=== PATIENT | male | born 1960 | race Caucasian/White ===

== ENCOUNTER 2023-02-11 15:28 | Outpatient (CLI) | payer MEDICARE, MEDICAID | END 2023-02-11 23:59 | disposition critical access hospital (66) | LOC: EMS 15:28 | DX: R07.89 Other chest pain (principal); M79.604 Pain in right leg | CPT/HCPCS: A0425; A0429 ==

== ENCOUNTER 2023-02-11 15:49 | Emergency (ER) | payer MEDICARE, MEDICAID ==
[2023-02-11 16:23] LABS: BASOPHILS # (AUTO) 0.1 10^3/uL (0.0-0.1); BASOPHILS % (AUTO) 0.9 %; EOSINOPHILS # (AUTO) 0.3 10^3/uL (0.0-0.7); EOSINOPHILS % (AUTO) 2.9 %; HGB - HEMOGLOBIN 16.1 g/dL (14.0-18.0); LYMPHOCYTES # (AUTO) 1.8 10^3/uL (1.5-3.5); LYMPHOCYTES % (AUTO) 15.6 %; MEAN CORPUSCULAR HEMOGLOBIN 31.6 pg (27.0-31.0); MEAN CORPUSCULAR HGB CONC 34.3 g/dL (32.0-36.0); MEAN CORPUSCULAR VOLUME 92.2 fL (80.0-94.0); MEAN PLATELET VOLUME 9.9 fL (7.4-11.4); MONOCYTES # (AUTO) 0.6 10^3/uL (0.0-1.0); MONOCYTES % (AUTO) 5.3 %; NEUTROPHILS # (AUTO) 8.9 10^3/uL (1.5-6.6); PLT - PLATELET COUNT 190 10^3/uL (130-450); RED CELL DISTRIBUTION WIDTH 12.8 % (12.0-15.0); WHITE BLOOD COUNT 11.8 x10^3/uL (4.8-10.8)
[2023-02-11 16:24] VITALS: BP 181/81
--- NOTE | 2023-02-11 16:27 | ED Physician Documentation ---
PD HPI CHEST PAIN - Stated complaint Stated Complaint: CP - Chief complaint Chief Complaint: Cardiac - History obtained from History obtained from: Patient - Additional information Additional information: Patient is a 62-year-old male presenting for evaluation of chest pain that started approximately 30 minutes prior to arrival. Patient said he was walking outside to smoke a cigarette when he felt it in the left side of his chest that felt like a pressure. It lasted 10 minutes and has resolved. He reports having other similar episodes in the past without clear etiology. He has a history of hypertension is on amlodipine.Denies history of PE or DVT. Does not use alcohol or drugs.Patient is currently staying at the [facility]. Review of Systems Constitutional: denies: Fever Cardiac: reports: Chest pain / pressure Respiratory: denies: Dyspnea GI: denies: Abdominal Pain, Vomiting : denies: Dysuria Musculoskeletal: denies: Back pain, Extremity swelling Neurologic: denies: Headache PD PAST MEDICAL HISTORY - Present Medications Home Medications: Ambulatory Orders Medication Instructions Recorded Confirmed Buprenorphine HCl/Naloxone HCl 1 each SL DAILY 02/11/23 02/11/23 [Buprenorphine-Nalox 8-2Mg Film] Lisinopril [Zestril] 20 mg PO DAILY 02/11/23 02/11/23 amLODIPine [Norvasc] 10 mg PO DAILY 02/11/23 02/11/23 - Allergies Allergies/Adverse Reactions: Allergies Allergy/AdvReac Type Severity Reaction Status Date / Time amitriptyline Allergy Unknown Verified 02/11/23 16:33 haloperidol [From Haldol] Allergy Unknown Verified 02/11/23 16:33 quetiapine [From Seroquel] Allergy Unknown Verified 02/11/23 16:33 PD ED PE NORMAL - General General: Alert and oriented X 3, No acute distress, Well developed/nourished - HEENT HEENT: Atraumatic, Moist mucous membranes, Pharynx benign - Neck Neck: Supple, no meningeal sign - Cardiac Cardiac: RRR, No murmur - Respiratory Respiratory: No respiratory distress, Clear bilaterally - Abdomen Abdomen: Soft, Non tender, Non distended - Derm Derm: Warm and dry - Extremities Extremities: No edema, No calf tenderness / cord - Neuro Neuro: Normal speech Results - Vitals Vitals: Vital Signs - 24 hr 02/11/23 02/11/23 16:07 16:11 Temperature 36.8 C 37.0 C Heart Rate 97 97 Respiratory 20 20 Rate Blood Pressure 181/98 H 181/81 H O2 Saturation 97 97 Oxygen O2 Source Room air - EKG (time done) 1555 EKG releavant findings:: EKG personally interpreted by author of this note. Relevant findings are: Rate 93, normal sinus rhythm, isolated PVC, no STEMI, No prior available for comparison Rate: Rate (enter#) (93) Rhythm: NSR Intervals: No: Prolonged QT Ischemia: No: ST elevation c/w ischemia Compare to prior EKG: Old EKG unavailable - Labs Labs: Laboratory Tests 02/11/23 02/11/23 02/11/23 16:16 16:16 16:16 WBC 11.8 H RBC 5.10 Hgb 16.1 Hct 47.0 MCV 92.2 MCH 31.6 H MCHC 34.3 RDW 12.8 Plt Count 190 MPV 9.9 Neut # (Auto) 8.9 H Lymph # (Auto) 1.8 [place] # (Auto) 0.6 Eos # (Auto) 0.3 Baso # (Auto) 0.1 Absolute Nucleated RBC 0.00 Nucleated RBC % 0.0 Sodium 139 Potassium 3.7 Chloride 104 Carbon Dioxide 24 Anion Gap 11.0 BUN 18 Creatinine 0.9 Estimated GFR (MDRD) 86 L Glucose 147 H Calcium 9.5 Total Bilirubin 0.6 AST 22 ALT 23 Alkaline Phosphatase 93 Troponin I High Sens 5.1 Total Protein 7.4 Albumin 4.2 Globulin 3.2 Albumin/Globulin Ratio 1.3 02/11/23 17:16 WBC RBC Hgb Hct MCV MCH MCHC RDW Plt Count MPV Neut # (Auto) Lymph # (Auto) [place] # (Auto) Eos # (Auto) Baso # (Auto) Absolute Nucleated RBC Nucleated RBC % Sodium Potassium Chloride Carbon Dioxide Anion Gap BUN Creatinine Estimated GFR (MDRD) Glucose Calcium Total Bilirubin AST ALT Alkaline Phosphatase Troponin I High Sens 5.7 Total Protein Albumin Globulin Albumin/Globulin Ratio PD Medical Decision Making - ED course Complexity details: reviewed results, re-evaluated patient, d/w patient ED course: 1700 - Patient is resting comfortably. Reviewed his initial labs and chest x- ray. Discussed plan for repeat troponin in 2 hours. Patient has not had any further episodes of chest pain. Patient presenting for evaluation of 10-minute episode of left-sided chest pain and that occurred just prior to arrival. His EKG is reviewed and without ischemic changes.Blood pressure is slightly elevated but otherwise vital signs are stable. He is symptom-free here. His CBC, chemistry and high-sensitivity troponin are reviewed and without significant findings. Plan for 2-hour troponin. Unfortunately the repeat troponin was drawn 1 hour early. It is however still negative. I did order for a third troponin to be drawn at the 2- hour rbuna as we had previously discussed but patient was eager for discharge Wanting to catch the bus and eloped prior to Third troponin.Patient was not intoxicated. He was ambulating with a steady gait and with clear speech. Departure - Departure Disposition: ED [facility] Clinical Impression: Chest pain Discharge Date/Time: 02/11/23 18:31
--- NOTE | 2023-02-11 16:36 | XRAY Report ---
PROCEDURE: Chest 1 View X-Ray INDICATIONS: Chest pain TECHNIQUE: One view of the chest was acquired. COMPARISON: None. FINDINGS: Surgical changes and devices: None. Lungs and pleura: No pleural effusions or pneumothorax. Lungs are clear. Mediastinum: Mediastinal contours appear normal. Heart size is normal. Bones and chest wall: No suspicious bony lesions. Overlying soft tissues appear unremarkable. IMPRESSION: No acute cardiopulmonary process. Reviewed by: Charo Miller MD, PhD on 02/11/2023 4:35 PM PDT Approved by: Charo Miller MD, PhD on 02/11/2023 4:35 PM PDT Station ID: [id number]
[2023-02-11 16:40] LABS: ALBUMIN 4.2 g/dL (3.2-5.5); ALBUMIN/GLOBULIN RATIO 1.3 (1.0-2.2); BILIRUBIN,TOTAL 0.6 mg/dL (0.2-1.0); CALCIUM 9.5 mg/dL (8.5-10.3); CREATININE 0.9 mg/dL (0.6-1.2); POTASSIUM 3.7 mmol/L (3.5-5.0); TOTAL PROTEIN 7.4 g/dL (6.7-8.2)
[2023-02-11] MEDS ORDERED: ACETAMINOPHEN 325 MG TABLET PO STA (17:39)
== END 2023-02-11 18:31 | disposition left against medical advice (07) ==
LOC: ED 15:49
DX: R07.9 Chest pain, unspecified (principal); Z53.29 Procedure and treatment not carried out because of patient's decision for other reasons
CPT/HCPCS: 36415; 71045; 80053; 84484; 85025; 93005; 99283; 99284; A9270

== ENCOUNTER 2023-02-16 01:09 | Outpatient (CLI) | payer MEDICARE, MEDICAID | END 2023-02-16 01:10 | disposition critical access hospital (66) | LOC: EMS 01:09 | DX: R09.89 Other specified symptoms and signs involving the circulatory and respiratory systems (principal); I10 Essential (primary) hypertension | CPT/HCPCS: A0425; A0429 ==

== ENCOUNTER 2023-02-16 01:28 | Emergency (ER) | payer MEDICARE, MEDICAID ==
[2023-02-16] MEDS ORDERED: ACETAMINOPHEN 325 MG TABLET PO STA (01:49)
[2023-02-16 02:08] LABS: BASOPHILS # (AUTO) 0.1 10^3/uL (0.0-0.1); BASOPHILS % (AUTO) 1.3 %; EOSINOPHILS # (AUTO) 0.2 10^3/uL (0.0-0.7); EOSINOPHILS % (AUTO) 3.1 %; HCT - HEMATOCRIT 43.8 % (42.0-52.0); HGB - HEMOGLOBIN 14.9 g/dL (14.0-18.0); LYMPHOCYTES # (AUTO) 1.2 10^3/uL (1.5-3.5); LYMPHOCYTES % (AUTO) 18.8 %; MEAN CORPUSCULAR HEMOGLOBIN 31.6 pg (27.0-31.0); MEAN PLATELET VOLUME 10.2 fL (7.4-11.4); MONOCYTES # (AUTO) 0.4 10^3/uL (0.0-1.0); MONOCYTES % (AUTO) 6.1 %; NEUTROPHILS # (AUTO) 4.5 10^3/uL (1.5-6.6); NEUTROPHILS % (AUTO) 70.5 %; PLT - PLATELET COUNT 158 10^3/uL (130-450); RED BLOOD COUNT 4.71 10^6/uL (4.70-6.10); RED CELL DISTRIBUTION WIDTH 12.7 % (12.0-15.0); WHITE BLOOD COUNT 6.4 x10^3/uL (4.8-10.8)
[2023-02-16 02:20] LABS: ALBUMIN/GLOBULIN RATIO 1.2 (1.0-2.2); BILIRUBIN,TOTAL 0.6 mg/dL (0.2-1.0); CALCIUM 8.7 mg/dL (8.5-10.3); CREATININE 0.8 mg/dL (0.6-1.2); POTASSIUM 3.2 mmol/L (3.5-5.0); TOTAL PROTEIN 7.3 g/dL (6.7-8.2)
[2023-02-16] MEDS ORDERED: POTASSIUM CHLORIDE 20 MEQ TABLET PO STA (02:27)
[2023-02-16] MEDS ORDERED: SODIUM CHLORIDE 0.9% 1,000 ML IV STA (02:40)
--- NOTE | 2023-02-16 02:44 | ED Physician Documentation ---
History of Present Illness - Stated complaint Stated Complaint: HIGH BP - Chief complaint Chief Complaint: Cardiac - History obtained from History obtained from: Patient - Additonal information Additional information: Patient is a 62-year-old male with a history of hypertension presenting for evaluation feeling his heart pounding in his head that He noticed when he woke up from his sleep and was walking to the bathroom this evening. Patient is currently staying at the [facility]. He asked an employee there to check his blood pressure but they were unable to do so so they called EMS.EMS noted that his initial blood pressure was slightly elevated Patient woke up, while walking to bath room, he could feel his heartbeat pounding in head and chest. Asked employees of [employer] to take Blood pressure, but they are unable to. EMS was called. Initial blood pressure they obtained was 193/106 but that quickly improved in route.Patient denies having a severe headache. He reports a dull throbbing at the back of his head. Denies head injury. Does not take a blood thinner. Denies chest pain, shortness of breath.No vomiting or diarrhea. Review of Systems Constitutional: denies: Fever Cardiac: denies: Chest pain / pressure Respiratory: denies: Dyspnea GI: denies: Abdominal Pain : denies: Dysuria Musculoskeletal: denies: Extremity swelling Neurologic: denies: Head injury PD PAST MEDICAL HISTORY - Past Medical History Cardiovascular: Hypertension Psych: Depression, Anxiety - Past Surgical History Past Surgical History: Yes Ortho: Other - Present Medications Home Medications: Ambulatory Orders Medication Instructions Recorded Confirmed Buprenorphine HCl/Naloxone HCl 1 each SL DAILY 02/11/23 02/11/23 [Buprenorphine-Nalox 8-2Mg Film] Lisinopril [Zestril] 20 mg PO DAILY 02/11/23 02/11/23 amLODIPine [Norvasc] 10 mg PO DAILY 02/11/23 02/11/23 - Allergies Allergies/Adverse Reactions: Allergies Allergy/AdvReac Type Severity Reaction Status Date / Time amitriptyline Allergy Unknown Verified 02/11/23 16:33 haloperidol [From Haldol] Allergy Unknown Verified 02/11/23 16:33 quetiapine [From Seroquel] Allergy Unknown Verified 02/11/23 16:33 - Social History Does the pt smoke?: Yes Smoking Status: Current every day smoker PD ED PE NORMAL - General General: Alert and oriented X 3, No acute distress, Well developed/nourished - HEENT HEENT: Atraumatic - Neck Neck: Supple, no meningeal sign - Cardiac Cardiac: RRR, No murmur - Respiratory Respiratory: No respiratory distress, Clear bilaterally - Abdomen Abdomen: Soft, Non tender, Non distended - Derm Derm: Warm and dry - Extremities Extremities: No calf tenderness / cord - Neuro Neuro: Alert and oriented X 3, forensic computer examiner 2-12 intact, No motor deficit, No sensory deficit, Normal speech, Other (Normal gait) Eye Opening: Spontaneous Motor: Obeys Commands Verbal: Oriented GCS Score: 15 Results - Vitals Vitals: Vital Signs - 24 hr 02/16/23 02/16/23 02/16/23 01:35 02:00 04:23 Temperature 36.6 C Heart Rate 92 64 62 Respiratory 17 15 16 Rate Blood Pressure 172/99 H 158/110 H 140/86 H O2 Saturation 98 97 99 Oxygen O2 Source Room air - EKG (time done) 0215 EKG releavant findings:: EKG personally interpreted by author of this note. Relevant findings are: Rate 60, normal sinus rhythm, no STEMI, QTc 408 Rate: Rate (enter#) (60) Rhythm: NSR Intervals: No: Prolonged QT Ischemia: No: ST elevation c/w ischemia - Labs Labs: Laboratory Tests 02/16/23 02/16/23 02:03 02:03 WBC 6.4 RBC 4.71 Hgb 14.9 Hct 43.8 MCV 93.0 MCH 31.6 H MCHC 34.0 RDW 12.7 Plt Count 158 MPV 10.2 Neut # (Auto) 4.5 Lymph # (Auto) 1.2 [place] # (Auto) 0.4 Eos # (Auto) 0.2 Baso # (Auto) 0.1 Absolute Nucleated RBC 0.00 Nucleated RBC % 0.0 Sodium 141 Potassium 3.2 L Chloride 100 L Carbon Dioxide 25 Anion Gap 16.0 H BUN 13 Creatinine 0.8 Estimated GFR (MDRD) 98 Glucose 131 H Calcium 8.7 Total Bilirubin 0.6 AST 18 ALT 20 Alkaline Phosphatase 83 Total Protein 7.3 Albumin 4.0 Globulin 3.3 Albumin/Globulin Ratio 1.2 PD Medical Decision Making - ED course Complexity details: reviewed results, re-evaluated patient, d/w patient ED course: Patient is a 62-year-old male with a history of hypertension presenting for evaluation of elevated blood pressure. Patient reports mild dull headache. Normal neuro exam. No symptoms to suggest subarachnoid hemorrhage or intracranial hemorrhage.Blood pressure is improving without treatment. No chest pain Or symptoms to suggest ACS.CBC and chemistries were obtained and reviewed. History is with slightly low potassium which was replaced orally. Patient is ambulating here without any symptoms. He is feeling better after IV fluids. He was counseled on need for close follow-up with PCP for continued management of his blood pressure and is advised on concerning symptoms to return for. Departure - Departure Disposition: 01 Home, Self Care Clinical Impression: Hypertension, Hypokalemia Condition: Stable Instructions: ED HTN Established Comments: Your blood pressure has been slightly elevated but not to the point where we need to do anything emergent about it such as rapidly lowering it. I would recommend close follow-up with the walk-in clinic or primary care provider regarding your blood pressure. Your potassium level was slightly low today and it does appear based on your labs that you have some level of dehydration. Please make sure you are staying hydrated and eating properly. If you develop any new or worsening symptoms such as chest pain or shortness of breath please return to the emergency department.
[2023-02-16 04:24] VITALS: BP 140/86
== END 2023-02-16 04:23 | disposition home or self-care (01) ==
LOC: EDUNIT# → ED 01:28
DX: E87.6 Hypokalemia (principal); I10 Essential (primary) hypertension; F17.200 Nicotine dependence, unspecified, uncomplicated
CPT/HCPCS: 36415; 80053; 85025; 93005; 99283; A9270

== ENCOUNTER 2023-02-25 13:04 | Outpatient (CLI) | payer MEDICARE, MEDICAID | END 2023-02-25 23:59 | disposition critical access hospital (66) | LOC: EMS 13:04 | DX: R07.9 Chest pain, unspecified (principal) | CPT/HCPCS: A0425; A0427 ==

== ENCOUNTER 2023-02-25 13:27 | Emergency (ER) | payer MEDICARE, MEDICAID ==
--- NOTE | 2023-02-25 13:51 | ED Physician Documentation ---
PD HPI CHEST PAIN - Stated complaint Stated Complaint: CP - Chief complaint Chief Complaint: Cardiac - History obtained from History obtained from: Patient - History of Present Illness Timing - details: Abrupt onset Pain level max: 4 Pain level now: 0 Quality: Sharp Location: Left chest Radiation: No: Jaw, Neck, Back, Abdominal, Left upper extremity, Right upper extremity Improved by: No: Rest, Oxygen, Nitro, ASA, Antacids, Other medication Worsened by: No: Exertion, Inspiration, Eating, Movement, Palpation, Position Associated symptoms: No: Shortness of air, Diaphoresis, Nausea, Vomiting, Feeling faint / dizzy, General Weakness, Palpitations - Additional information Additional information: 62-year-old male presents the emergency department stating he had about 2 minutes of left-sided chest pain today that was sharp in nature. He states that the pain is now resolved. Did not radiate. Nothing made it better or worse. Has had similar symptoms previously with no cause found. Currently asymptomatic. Patient denies any cardiac history. He does smoke. Review of Systems Constitutional: denies: Fever, Chills Throat: denies: Sore throat Cardiac: denies: Palpitations, Calf pain Respiratory: denies: Dyspnea, Cough, Hemoptysis, Wheezing GI: denies: Abdominal Pain, Vomiting, Diarrhea Skin: denies: Rash Musculoskeletal: denies: Neck pain, Back pain Neurologic: denies: Headache PD PAST MEDICAL HISTORY - Past Medical History Cardiovascular: Hypertension Psych: Depression, Anxiety - Past Surgical History Past Surgical History: Yes Ortho: Other - Present Medications Home Medications: Ambulatory Orders Medication Instructions Recorded Confirmed Buprenorphine HCl/Naloxone HCl 1 each SL DAILY 02/11/23 02/25/23 [Buprenorphine-Nalox 8-2Mg Film] Lisinopril [Zestril] 20 mg PO DAILY 02/11/23 02/25/23 amLODIPine [Norvasc] 10 mg PO DAILY 02/11/23 02/25/23 Pantoprazole [Protonix] 40 mg PO DAILY 02/25/23 02/25/23 - Allergies Allergies/Adverse Reactions: Allergies Allergy/AdvReac Type Severity Reaction Status Date / Time amitriptyline Allergy Unknown Verified 02/11/23 16:33 haloperidol [From Haldol] Allergy Unknown Verified 02/11/23 16:33 quetiapine [From Seroquel] Allergy Unknown Verified 02/11/23 16:33 - Social History Does the pt smoke?: Yes Smoking Status: Current every day smoker - POLST Patient has POLST: No PD ED PE NORMAL - Vitals Vital signs reviewed: Yes - General General: Alert and oriented X 3, No acute distress - HEENT HEENT: Moist mucous membranes - Neck Neck: Supple, no meningeal sign - Cardiac Cardiac: RRR, Strong equal pulses - Respiratory Respiratory: No respiratory distress, Clear bilaterally - Abdomen Abdomen: Soft, Non tender, Non distended - Back Back: No spinal TTP - Derm Derm: Warm and dry, No rash - Extremities Extremities: No edema - Neuro Neuro: Alert and oriented X 3 - Psych Psych: Normal mood, Normal affect - Free text exam Free text exam: Tender to palpation across the anterior chest wall, reproduces his pain Results - Vitals Vitals: Vital Signs - 24 hr 02/25/23 02/25/23 13:29 13:56 Temperature 36.8 C Heart Rate 72 67 Respiratory 18 15 Rate Blood Pressure 162/97 H 162/84 H O2 Saturation 100 97 Oxygen O2 Source Room air - EKG (time done) 1327 EKG releavant findings:: EKG personally interpreted by author of this note. Relevant findings are: Rate: Rate (enter#) (74) Rhythm: NSR [place]: Normal Intervals: Normal [place] QRS: Normal Ischemia: Normal ST segments - Rads (name of study) Chest x-ray Relevant Findings:: Final report received, See rad report PD Medical Decision Making - ED course Complexity details: considered differential, d/w patient ED course: Patient here for atypical chest pain. While awaiting laboratory testing and work-up, patient decided he did not want to be seen anymore and demanded to leave. Patient did not wait for me to speak to him before he eloped from the emergency department. I was informed that he left the emergency department by the nursing staff under his own power. This document was made in part using voice recognition software. While efforts are made to proofread this document, sound alike and grammatical errors may occur. Departure - Departure Disposition: ED [facility] Clinical Impression: Chest pain Qualifiers: Chest pain type: unspecified Qualified Code(s): R07.9 - Chest pain, unspecified Condition: Good Discharge Date/Time: 02/25/23 14:26
[2023-02-25 14:02] VITALS: BP 162/84
--- NOTE | 2023-02-25 14:42 | XRAY Report ---
PROCEDURE: Chest 1 View X-Ray INDICATIONS: Chest Pain TECHNIQUE: One view of the chest was acquired. COMPARISON: None. FINDINGS: Surgical changes and devices: None. Lungs and pleura: No pleural effusions or pneumothorax. No acute airspace opacities. A probable gran uloma is noted within the right upper lobe, unchanged from the prior study. Mediastinum: Mediastinal contours appear normal. Heart size is normal. Bones and chest wall: No suspicious bony lesions. Overlying soft tissues appear unremarkable. IMPRESSION: No acute cardiopulmonary process. Probable right upper lobe granuloma. If further characterization is warranted, nonemergent CT of the chest could be used. Reviewed by: Nannette Tinoco MD on 02/25/2023 2:40 PM PDT Approved by: Nannette Tinoco MD on 02/25/2023 2:40 PM PDT Station ID: [id number]
== END 2023-02-25 14:26 | disposition left against medical advice (07) ==
LOC: EDBD → EDUNIT# → ED 13:27
DX: R07.89 Other chest pain (principal); F17.200 Nicotine dependence, unspecified, uncomplicated
CPT/HCPCS: 80053; 83690; 84484; 85025; 93005; 99283; 99284